=== PATIENT | male | born 1990 | race Hispanic/Latino ===

== ENCOUNTER 2017-06-28 06:48 | Emergency (ER) | payer MEDICAID, OTHER | END 2017-06-28 08:13 | disposition home or self-care (01) | LOC: ERS 06:48 | DX: H34.8122 Central retinal vein occlusion, left eye, stable (principal); E11.9 Type 2 diabetes mellitus without complications; E78.5 Hyperlipidemia, unspecified; I12.0 Hypertensive chronic kidney disease with stage 5 chronic kidney disease or end stage renal disease; N18.6 End stage renal disease; Z79.899 Other long term (current) drug therapy; Z79.84 Long term (current) use of oral hypoglycemic drugs | CPT/HCPCS: 99283 ==

== ENCOUNTER 2018-04-17 14:49 | Emergency (ER) | payer MEDICAID, MEDICARE ==
[~2018-04-17 14:49] MED LIST: ISOVUE-370 76%-LOCM 1 ML ONE
[2018-04-17] MEDS ORDERED: Lorazepam 2 MG/ML VIAL ONE (15:23)
[2018-04-17] MEDS ORDERED: hydrALAZINE 20 MG/ML VIAL ONE (15:23)
[2018-04-17 15:39] LABS: #Basophils 0.1 thou/uL (0.0-0.2); #Eosinphils 0.2 thou/uL (0.0-0.7); #Lymphocytes 2.3 thou/uL (1.20-3.40); #Monocytes 0.5 thou/uL (0.11-0.59); #Neutrophils 7.3 thou/uL (1.40-6.50); %Basophils 0.9 % (0.0-1.0); %Eosinophils 2.3 % (0.0-10.0); %Lymphocytes 21.9 % (21.0-51.0); %Monocytes 4.7 % (0.0-10.0); %Neutrophils 70.2 % (42.0-75.0); Hemoglobin 13.1 g/dL (14.0-18.0); Mean Corpuscular HGB CONC 35.6 g/dL (32.0-36.0); Mean Corpuscular Hemoglobin 32.9 pg (27.0-31.0); Mean Corpuscular Volume 92.5 fL (78.0-98.0); Mean Platelet Volume 8.4 fL (7.4-10.4); Platelet Count 221 thou/uL (130-400); RBC Distribution Width 12.7 % (11.5-14.5); Red Blood Cell (RBC) Count 3.98 mill/uL (4.70-6.10); White Blood Cell (WBC) Count 10.5 thou/uL (4.8-10.8)
--- NOTE | 2018-04-17 15:45 | RAD ---
AP VIEW OF THE CHEST: INDICATION: Chest pain. COMPARISON: Prior study dated 01/14/17. IMPRESSION: Lungs are clear. No pleural effusion or pneumothorax is evident. No acute osseous abnormality is ev ident. Previously seen central venous catheter has been removed. POS: PHILIP
[2018-04-17 16:00] LABS: ALT (SGPT) 12 U/L (8-55); AST (SGOT) 10 U/L (5-34); Albumin 4.6 g/dL (3.5-5.0); Alkaline Phosphatase 55 U/L (40-150); Anion Gap 21 mmol/L (10-20); BUN (Urea Nitrogen) 82 mg/dL (8.9-20.6); Bilirubin, Total 0.6 mg/dL (0.2-1.2); CK (CPK) 128 U/L (30-200); Calc. Creatinine Clearance 0 mL/min (70-130); Calcium 8.7 mg/dL (7.8-10.44); Carbon Dioxide 21 mmol/L (22-29); Chloride 101 mmol/L (98-107); Estimated GFR-MDRD 7; Glucose 205 mg/dL (70-105); Lipase 189 U/L (8-78); Potassium 3.6 mmol/L (3.5-5.1); Protein, Total 7.6 g/dL (6.0-8.3); Sodium 139 mmol/L (136-145)
[2018-04-17 16:04] LABS: CKMB 2.7 ng/mL (0-6.6); Troponin I Less than 0.010 ng/mL (< 0.028)
--- NOTE | 2018-04-17 17:23 | CT ---
CTA AORTIC DISSECTION PROTOCOL WITH 3D REFORMATTED IMAGING: INDICATIONS: Chest pain. COMPARISON: None. FINDINGS: No acute aortic stenosis, occlusion, or aneurysmal formation is evident. There is mild vascular calc ification involving the abdominal aorta. There are coronary artery calcifications involving the LAD. There is mild bilateral male gynecomastia. No focal hepatic lesion is evident. There is moderate distention of the stomach with fluid. The pancreas and adrenal glands appear within normal limits. The kidneys and spleen appear within normal limits. No lymphadenopathy or free fluid is evident. Th e appendix is surgically absent. The unopacified large and small bowel are unremarkable appearing. 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 No acute osseous abnormality is evident. IMPRESSION: 1. No acute aortic stenosis, occlusion, or aneurysmal formation demonstrated. 2. Mild vascular calcification involving the abdominal aorta and coronary arteries, slightly prematu re for age. 3. Mild bilateral male gynecomastia. 4. Other chronic findings as above. POS: BH
[2018-04-17 18:24] LABS: Troponin I Less than 0.010 ng/mL (< 0.028)
== END 2018-04-17 18:50 | disposition home or self-care (01) ==
LOC: ERS 14:49
DX: I16.0 Hypertensive urgency (principal); F41.9 Anxiety disorder, unspecified; E11.9 Type 2 diabetes mellitus without complications; E78.5 Hyperlipidemia, unspecified; I12.0 Hypertensive chronic kidney disease with stage 5 chronic kidney disease or end stage renal disease; N18.6 End stage renal disease; Z79.899 Other long term (current) drug therapy
CPT/HCPCS: 36415; 71045; 71275; 80053; 82553; 83690; 83880; 84484; 85025; 93005; 96374; J0360; J2060

== ENCOUNTER 2019-02-19 21:32 | Observation (INO) | payer OTHER, MEDICARE ==
[2019-02-19 21:58] LABS: #Basophils 0.1 thou/uL (0.0-0.2); #Eosinphils 0.3 thou/uL (0.0-0.7); #Lymphocytes 2.4 thou/uL (1.20-3.40); #Neutrophils 10.1 thou/uL (1.40-6.50); %Basophils 0.4 % (0.0-1.0); %Eosinophils 2.4 % (0.0-10.0); %Lymphocytes 17.3 % (21.0-51.0); %Monocytes 7.4 % (0.0-10.0); %Neutrophils 72.5 % (42.0-75.0); Hemoglobin 13.4 g/dL (14.0-18.0); Mean Corpuscular HGB CONC 35.1 g/dL (32.0-36.0); Mean Corpuscular Hemoglobin 32.4 pg (27.0-31.0); Mean Corpuscular Volume 92.4 fL (78.0-98.0); Platelet Count 244 thou/uL (130-400); RBC Distribution Width 11.8 % (11.5-14.5); Red Blood Cell (RBC) Count 4.15 mill/uL (4.70-6.10)
--- NOTE | 2019-02-19 22:14 | RAD ---
PORTABLE CHEST ONE VIEW: 02/19/2019 9:55 p.m. HISTORY: Chest pain. COMPARISON: 04/17/2018 FINDINGS: The heart size is normal. No focal areas of consolidation, pneumothoraces, flores pulmonary edema, or pleural effusions are seen. IMPRESSION: No acute process. POS: RENATO
[2019-02-19 22:15] LABS: ALT (SGPT) 20 U/L (8-55); AST (SGOT) 9 U/L (5-34); Albumin 4.8 g/dL (3.5-5.0); Alkaline Phosphatase 69 U/L (40-150); Anion Gap 24 mmol/L (10-20); BUN (Urea Nitrogen) 73 mg/dL (8.9-20.6); Bilirubin, Total 0.5 mg/dL (0.2-1.2); Calc. Creatinine Clearance 0 mL/min (70-130); Calcium 8.1 mg/dL (7.8-10.44); Carbon Dioxide 19 mmol/L (22-29); Chloride 99 mmol/L (98-107); Estimated GFR-MDRD 7; Glucose 271 mg/dL (70-105); Potassium 3.8 mmol/L (3.5-5.1); Protein, Total 7.8 g/dL (6.0-8.3); Sodium 138 mmol/L (136-145)
[2019-02-19] MEDS ORDERED: Ondansetron PF 4 MG/2 ML Vial ONE (22:27)
[2019-02-19] MEDS ORDERED: Aspirin Chewable 81 MG TAB ONE (23:03)
--- NOTE | 2019-02-19 23:17 | PDOC.FPRHP ---
- History of Present Illness Chief Complaint: Chest pain History of Present Illness: This note is written as a short stay. Mr. Torres is a 28 yo M with a PMH of HTN, DMII, and ESRD on HD who presents to the ED for evaluation of chest pain and lightheadedness. He went to work at the [employer] plant 7pm. While working he became sweaty and dizzy around 8pm and went to the break room to rest. On the way there he developed chest pain, chest tightness and shortness of breath. The pain lasted approximately 10 minutes. The chest pain was characterized as squeezing, 9/10, and without radiation. Currently the pain is lingering, at a 7/10, worsened by laying flat and deep breathing. The pain is easily replicated by pressing on his sternum. On ROS he reported diarrhea on Tuesday and Tuesday. He states that at dialysis today they gave him a medication for the diarrhea, but does not recall the name. He developed ESRD as a result of uncontrolled HTN, DMII and cocaine abuse approximately 2 years ago requiring placement of an AV fistula in his right arm. He receives dialysis MWF. He had dialysis today that ended at 1:30pm without problems. ED Course: He received 325mg aspirin and 4mg IV zofran. Initial troponin was negative. EKG showed normal sinus rhythm. - Allergies/Adverse Reactions Allergies Allergy/AdvReac Type Severity Reaction Status Date / Time No Known Drug Allergies Allergy Verified 01/13/17 00:11 - Home Medications Medication Instructions Recorded Confirmed Type Carvedilol [Coreg] 12.5 mg PO BID-WM #60 tab 01/19/17 02/19/19 Rx NIFEdipine [Nifedipine ER] 90 mg PO DAILY #30 tablet.er 01/19/17 02/19/19 Rx - History PMHx: DMII on HD MWF (since 2015) HTN PSHx: Appendectomy FHx: MGM - Diabetes, HLD Parents both had HTN and DMII Social: Past cocaine use - Review of Systems General: denies: fever/chills, weight/appetite/sleep changes, night sweats ENT: denies: nasal congestion, rhinorrhea Respiratory: reports: shortness of breath. denies: cough, congestion, exercise intolerance Cardiovascular: reports: chest pain. denies: palpitation, edema, paroxysmal nocturnal dyspnea, orthopnea Gastrointestinal: reports: nausea, diarrhea. denies: vomiting, constipation, abdominal pain Genitourinary: denies: dysuria Skin: denies: rashes Musculoskeletal: denies: pain Neurological: reports: numbness (tuesday - feet tingling) Psychological: denies: anxiety, depression - Vital signs BP: 154/106 HR: 94 RR: 15 Tmax: Pox: 98% on RA Wt: 81.65kg - Physical Exam Constitutional: NAD, awake, alert and oriented HEENT: normocephalic and atraumatic Neck: supple, FROM Chest: other (Extremely tender to palpation along the sternum and sternal border.) Heart: RRR Lungs: CTAB, no respiratory distress, good air movement, no rales/rhonchi, no wheezing, no retractions Abdomen: soft, non-tender, bowel sounds present Musculoskeletal: normal structure, normal tone Neurological: no focal deficit Skin: no rash/lesions Heme/Lymphatic: no unusual bruising or bleeding Psychiatric: normal mood and affect FMR H&P: Results - Labs Result Diagrams: 02/19/19 21:48 02/19/19 21:48 Lab results: WBC 14.0 thou/uL (4.8-10.8) H 02/19/19 21:48 Hgb 13.4 g/dL (14.0-18.0) L 02/19/19 21:48 Hct 38.3 % (42.0-52.0) L 02/19/19 21:48 MCV 92.4 fL (78.0-98.0) 02/19/19 21:48 Plt Count 244 thou/uL (130-400) 02/19/19 21:48 Neutrophils % 72.5 % (42.0-75.0) 02/19/19 21:48 Sodium 138 mmol/L (136-145) 02/19/19 21:48 Potassium 3.8 mmol/L (3.5-5.1) 02/19/19 21:48 Chloride 99 mmol/L (98-107) 02/19/19 21:48 Carbon Dioxide 19 mmol/L (22-29) L 02/19/19 21:48 BUN 73 mg/dL (8.9-20.6) H 02/19/19 21:48 Creatinine 9.22 mg/dL (0.7-1.3) H 02/19/19 21:48 Glucose 271 mg/dL (70-105) H 02/19/19 21:48 Calcium 8.1 mg/dL (7.8-10.44) 02/19/19 21:48 Total Bilirubin 0.5 mg/dL (0.2-1.2) 02/19/19 21:48 AST 9 U/L (5-34) 02/19/19 21:48 ALT 20 U/L (8-55) 02/19/19 21:48 Alkaline Phosphatase 69 U/L (40-150) 02/19/19 21:48 Serum Total Protein 7.8 g/dL (6.0-8.3) 02/19/19 21:48 Albumin 4.8 g/dL (3.5-5.0) 02/19/19 21:48 Laboratory Tests 02/19/19 21:48 Troponin I Less than 0.010 - EKG Interpretation EKG: Normal sinus rhythm - Radiology Interpretation Chest x-ray Status: report reviewed by me Additional comment: No acute cardiopulmonary processes. FMR H&P: A/P - Problem List (1) Costochondritis, acute Current Visit: Yes Status: Acute Code(s): M94.0 - CHONDROCOSTAL JUNCTION SYNDROME [TIETZE] (2) ESRD (end stage renal disease) on dialysis Current Visit: Yes Status: Chronic Code(s): N18.6 - END STAGE RENAL DISEASE ; Z99.2 - DEPENDENCE ON RENAL DIALYSIS (3) DM type 2 (diabetes mellitus, type 2) Current Visit: Yes Status: Chronic Qualifiers: Diabetes mellitus assisted insulin use: without assisted use Diabetes mellitus complication status: with kidney complications Diabetes mellitus complication detail: with chronic kidney disease Chronic kidney disease stage : on chronic dialysis Qualified Code(s): E11.22 - Type 2 diabetes mellitus with diabetic chronic kidney disease; N18.6 - End stage renal disease; Z99.2 - Dependence on renal dialysis (4) HTN (hypertension) Current Visit: Yes Status: Chronic Code(s): I10 - ESSENTIAL (PRIMARY) HYPERTENSION Qualifiers: Hypertension type: essential hypertension Qualified Code(s): I10 - Essential (primary) hypertension - Plan Hospital course: Patient remained in the ER for observation. During his stay his initial and repeat troponins were negative. His EKG was normal. His chest pain improved with PO pain medication and positional changes. His heart score was 1 and with the labs and imaging studies we felt that the likelihood for a cardiac cause for his pain was very low. Our assessment is that his pain is likely due to acute costochondritis, as the pain is musculoskeletal and positional in nature and reproducible. We instructed the patient to use OTC tylenol for pain control, rest, and return to ER if symptoms worsen or fail to improve. We also recommend that he establish care with a PCP for management of his chronic illnesses. FMR H&P: Upper Level - Pertinent history This note will be written as a short stay. 28 yo M w/hx of ESRD secondary to uncontrolled DM, uncontrolled HTN, and cocaine abuse here with complaint of sharp chest pain which onset at work earlier today. Pain does not radiate and is positional in nature. He has had similar pain in the past and was told it was related to anxiety. He has no personal or family hx of heart diseased. He denies tobacco use and has quit all illicit substance abuse. His most recent A1c was in the low 7's. In the ED he was found to be in NSR with no ekg changes. Initial trop was negative. See internal combustion engine inspector portion for full ROS, PE, vitals, labs ROS General denies fever or diaphoresis HEENT denies changes in vision CV complains of chest pain which is sharp in nature and does not radiate. Resp denies SOB or cough GI denies n/v Neuro denies weakness or numbness - Pertinent findings PE General A&O x3 HEENT NCAT CV RRR, no murmur MSK TTP over sternum Resp CTA /l Abd non tender, no distension Extremities No edema - Plan Date/Time: 02/19/19 2311 Isaias Casarez DO, have evaluated this patient and agree with findings/plan as outlined by internal combustion engine inspector resident. Pertinent changes/additions are listed here. 1. Costochondritis - Labs, hx, and PE are most consistent with this diagnosis. Pt has a heart score of 1. - Trops were trended x2 and remained negative. - Pain improved with PO tylenol - Discussed dc home with pt with strict ER return precautions. Pt agrees and feels comfortable with dc. All questions answered - Pt was monitored on tele for entirety of obs period with no concerns. - EKG reassuring 2. DM2 - follow up with nephro - pt is looking for PCP 3. ESRD - at baseline, follow up outpatient.
[2019-02-20 01:26] LABS: Troponin I Less than 0.010 ng/mL (< 0.028)
[2019-02-20] MEDS ORDERED: traMADol HCl 50 MG TAB PO PRN (01:48)
[2019-02-20] MEDS ORDERED: Ondansetron ODT 4 MG TAB PO PRN (01:48)
[2019-02-20] MEDS ORDERED: Dextrose 5% in Water 1,000 ML IV PRN (01:48)
[2019-02-20] MEDS ORDERED: Acetaminophen 325 MG TAB PO PRN (01:48)
[2019-02-20] MEDS ORDERED: Dextrose 50% Abboject 50 ML SYRINGE SLOW IVP PRN (01:48)
[2019-02-20] MEDS ORDERED: HumaLOG 300 UNITS/3 ML VIAL SC PRN ×2 (01:48)
[2019-02-20] MEDS ORDERED: traMADol HCl 50 MG TAB ONE (02:31)
[2019-02-20] MEDS ORDERED: Carvedilol 25 MG TAB PO SCH (08:00)
[2019-02-20] MEDS ORDERED: NIFEdipine XL 90 MG TAB PO SCH (09:00)
--- NOTE | 2019-02-24 11:12 | EKG ---
Test Reason : Blood Pressure : / mmHG Vent. Rate : 091 BPM Atrial Rate : 091 BPM P-R Int : 142 ms QRS Dur : 092 ms QT Int : 380 ms P-R-T Axes : 063 -21 076 degrees QTc Int : 467 ms Normal sinus rhythm Normal ECG Confirmed by TANIKA WESLEY M.D. ([id number]), restaurant expeditor SALMA VERGARA ([id number]) on 02/24/2019 11:12:13 AM Referred By: Confirmed By:TANIKA WESLEY M.D.
== END 2019-02-20 04:18 | disposition home or self-care (01) ==
LOC: ERS 21:32 → ERHOLD 23:18
PROVIDERS: ADMIT Family Medicine; ATTEND Family Medicine
DX: M94.0 Chondrocostal junction syndrome [Tietze] (principal); I12.0 Hypertensive chronic kidney disease with stage 5 chronic kidney disease or end stage renal disease; E11.22 Type 2 diabetes mellitus with diabetic chronic kidney disease; N18.6 End stage renal disease; F14.10 Cocaine abuse, uncomplicated; E78.5 Hyperlipidemia, unspecified; E78.00 Pure hypercholesterolemia, unspecified; Z99.2 Dependence on renal dialysis; Z87.891 Personal history of nicotine dependence
CPT/HCPCS: 36415; 36416; 71045; 80053; 84484; 85025; 93005; 96374; G0378; J2405

== ENCOUNTER 2020-05-01 08:59 | Emergency (ER) | payer MEDICARE, OTHER | END 2020-05-01 10:12 | disposition home or self-care (01) | LOC: ERS 08:59 | DX: S01.01XD Laceration without foreign body of scalp, subsequent encounter (principal); E11.22 Type 2 diabetes mellitus with diabetic chronic kidney disease; I12.0 Hypertensive chronic kidney disease with stage 5 chronic kidney disease or end stage renal disease; N18.6 End stage renal disease; Z91.15 Patient's noncompliance with renal dialysis; Z87.891 Personal history of nicotine dependence ==

== ENCOUNTER 2022-04-27 21:11 | Emergency (ER) | payer MEDICARE, BC ==
[2022-04-27] MEDS ORDERED: Ondansetron ODT 4 MG TAB ONE (22:00)
[2022-04-27] MEDS ORDERED: Lidocaine Viscous Sol 2% 15 ml UD Cup ONE (22:00)
[2022-04-27] MEDS ORDERED: Mag-Al 1200 mg/1200 mg/30 ML UDCUP ONE (22:00)
[2022-04-27] MEDS ORDERED: Famotidine 20 MG TAB ONE (22:00)
[2022-04-27 22:10] LABS: #Eosinphils 0.1 thou/uL (0.0-0.7); #Lymphocytes 1.4 thou/uL (1.20-3.40); #Monocytes 1.1 thou/uL (0.11-0.59); #Neutrophils 10.8 thou/uL (1.40-6.50); %Basophils 0.1 % (0.0-1.0); %Eosinophils 0.6 % (0.0-10.0); %Lymphocytes 10.4 % (21.0-51.0); %Monocytes 8.2 % (0.0-10.0); %Neutrophils 80.9 % (42.0-75.0); Hemoglobin 15.8 g/dL (14.0-18.0); Mean Corpuscular HGB CONC 33.1 g/dL (32.0-36.0); Mean Corpuscular Hemoglobin 30.7 pg (27.0-31.0); Mean Corpuscular Volume 92.8 fL (78.0-98.0); Mean Platelet Volume 8.4 fL (7.4-10.4); Platelet Count 302 thou/uL (130-400); Red Blood Cell (RBC) Count 5.15 mill/uL (4.70-6.10); White Blood Cell (WBC) Count 13.4 thou/uL (4.8-10.8)
[2022-04-27 22:32] LABS: ALT (SGPT) 13 U/L (8-55); AST (SGOT) 10 U/L (5-34); Albumin 4.7 g/dL (3.5-5.0); Alkaline Phosphatase 81 U/L (40-110); Anion Gap 17 mmol/L (10-20); BUN (Urea Nitrogen) 12 mg/dL (8.9-20.6); Bilirubin, Total 0.5 mg/dL (0.2-1.2); Calc. Creatinine Clearance 0 mL/min (70-130); Calcium 10.5 mg/dL (7.8-10.44); Carbon Dioxide 26 mmol/L (22-29); Chloride 101 mmol/L (98-107); Estimated GFR 94; Globulin 2.9 g/dL (2.4-3.5); Glucose 138 mg/dL (70-105); Lipase 34 U/L (8-78); Potassium 4.1 mmol/L (3.5-5.1); Protein, Total 7.6 g/dL (6.0-8.3); Sodium 140 mmol/L (136-145)
[2022-04-27 22:48] LABS: Bacteria/HPF None Seen HPF (None Seen); Bilirubin Negative (Negative); Blood, Urine Negative (Negative); Clarity Turbid (Clear); Glucose, Urine (Dipstick) Normal (Negative); Ketone, Urine Negative (Negative); Leukocyte Negative Leu/uL (Negative); Nitrite Negative (Negative); Protein, Urine (Dipstick) 30 mg/dL (Neg-Trace); RBC/HPF 0-3 HPF (0-3); Specific Gravity, Urine 1.021 (1.002-1.036); Squamous Epithelial None Seen HPF (0-3); Urobilinogen Normal mg/dL (Less than 2); WBC/HPF 0-3 HPF (0-3)
[2022-04-27] MEDS ORDERED: Morphine 4 MG/ML VIAL ONE (23:30)
[2022-04-27] MEDS ORDERED: Promethazine HCl 25 MG in Sodium Chloride 0.9% 50 ML IVPB SCH (23:45)
== END 2022-04-28 01:20 | disposition home or self-care (01) ==
LOC: ERS 21:11
DX: K52.9 Noninfective gastroenteritis and colitis, unspecified (principal); K29.70 Gastritis, unspecified, without bleeding; E11.9 Type 2 diabetes mellitus without complications; E78.5 Hyperlipidemia, unspecified; E78.00 Pure hypercholesterolemia, unspecified; I10 Essential (primary) hypertension
CPT/HCPCS: 36415; 74176; 80053; 81003; 81015; 83690; 85025; 96374; 96375; J2270; J2550; Q0162

== ENCOUNTER 2023-08-04 11:37 | Emergency (ER) | payer BC, MEDICARE | END 2023-08-04 13:21 | disposition home or self-care (01) | LOC: ERS 11:37 | DX: G51.0 Bell's palsy (principal); E11.9 Type 2 diabetes mellitus without complications; I10 Essential (primary) hypertension; Z79.82 Long term (current) use of aspirin; Z79.899 Other long term (current) drug therapy | CPT/HCPCS: 99283 ==